=== PATIENT | female | born 2000 | race Two or more races ===

== ENCOUNTER 2022-08-17 14:32 | Emergency (ER) | payer OTHER ==
[2022-08-17 15:27] LABS: Bilirubin Neg (Negative); Blood, Urine Negative (Negative); Clarity Slightly Cloudy (Clear); Glucose, Urine (Dipstick) Normal (Negative); Ketone, Urine 5 mg/dL (Negative); Leukocyte 25 (Negative); Nitrite Positive (Negative); Protein, Urine (Dipstick) 15 mg/dl (Neg-Trace); Specific Gravity, Urine 1.025 (1.005-1.030); Urobilinogen Normal mg/dL (Less than 2)
[2022-08-17 15:50] LABS: #Basophils 0.1 10x3/uL (0.0-0.2); #Eosinphils 0.1 10x3/uL (0.0-0.5); #Monocytes 0.6 10x3/uL (0.0-1.1); #Neutrophils 5.1 10x3/uL (1.5-8.4); %Basophils 0.8 % (0.0-2.0); %Eosinophils 0.6 % (0.0-6.0); %Lymphocytes 33.4 % (18.0-47.0); %Monocytes 6.3 % (0.0-10.0); %Neutrophils 58.7 % (40.0-75.0); Hemoglobin 12.9 g/dL (12.0-15.5); Mean Corpuscular HGB CONC 32.9 g/dL (32.0-36.0); Mean Corpuscular Hemoglobin 29.7 pg (27.0-33.0); Mean Corpuscular Volume 90.1 fl (81.6-98.3); Mean Platelet Volume 9.5 fl (7.4-10.4); Platelet Count 289 10x3/uL (150-450); RBC Distribution Width 12.7 % (11.5-14.5); Red Blood Cell (RBC) Count 4.35 10x6/uL (3.90-5.03); White Blood Cell (WBC) Count 8.7 10x3/uL (3.5-10.5)
[2022-08-17 16:01] LABS: Bacteria/HPF 4+ HPF (None Seen); RBC/HPF 0-3 HPF (0-3); WBC/HPF 21-50 HPF (0-3)
[2022-08-17 16:02] LABS: Mucous/LPF 2+ LPF (<2+); Squamous Epithelial 21-50 HPF (0-3)
== END 2022-08-17 16:52 | disposition home or self-care (01) ==
LOC: CSHERS 14:32
DX: O23.41 Unspecified infection of urinary tract in pregnancy, first trimester (principal); N39.0 Urinary tract infection, site not specified; O21.9 Vomiting of pregnancy, unspecified; Z3A.01 Less than 8 weeks gestation of pregnancy
CPT/HCPCS: 36415; 76856; 81003; 81015; 84702; 85025; 86900; 86901; 87077; 87086; 87186

== ENCOUNTER 2023-03-29 22:36 | Day surgery (SDC) | payer OTHER ==
[2023-03-29 23:28] VITALS: BMI 20.9
[2023-03-30] MEDS ORDERED: hydrALAZINE 20 MG/ML VIAL SLOW IVP PRN (00:30)
== END 2023-03-30 03:50 | disposition home or self-care (01) ==
LOC: CSHLD/OP 22:36
PROVIDERS: ATTEND Family Medicine
DX: O47.03 False labor before 37 completed weeks of gestation, third trimester (principal); Z79.899 Other long term (current) drug therapy; Z91.018 Allergy to other foods; Z3A.36 36 weeks gestation of pregnancy
CPT/HCPCS: 76819; 99282

== ENCOUNTER 2023-04-20 20:57 | Inpatient (IN) | payer OTHER ==
[~2023-04-20 20:57] MED LIST: Bupivacaine 0.25% HCL 30 ML VIAL ONE
[2023-04-20 21:23] VITALS: BMI 21.6
[2023-04-20] MEDS ORDERED: Promethazine HCl 25 MG/ML VIAL IM PRN (22:11)
[2023-04-20] MEDS ORDERED: fentaNYL 50 mcg/mL 1 mL Vial SLOW IVP PRN (22:11)
[2023-04-20] MEDS ORDERED: Diphenoxylate HCl/Atropine Tablet PO PRN (22:11)
[2023-04-20] MEDS ORDERED: Lidocaine 1% (PF) 30 ML VIAL SC PRN (22:11)
[2023-04-20] MEDS ORDERED: Ondansetron PF 4 MG/2 ML Vial IVP PRN (22:11)
[2023-04-20] MEDS ORDERED: hydrALAZINE 20 MG/ML VIAL SLOW IVP PRN (22:11)
[2023-04-20] MEDS ORDERED: HYDROcodone/Acetaminophen 5/325 mg Tablet PO PRN (22:11)
[2023-04-20] MEDS ORDERED: Misoprostol 200 MCG TAB PR PRN (22:11)
[2023-04-20] MEDS ORDERED: Methylergonovine 0.2 MG/ML VIAL IM PRN (22:11)
[2023-04-20] MEDS ORDERED: Tranexamic Acid 1,000 MG/10 ML VIAL IVP PRN (22:11)
[2023-04-20] MEDS ORDERED: Ibuprofen 800 MG TAB PO PRN (22:11)
[2023-04-20] MEDS ORDERED: Acetaminophen 500 MG TAB PO PRN (22:11)
[2023-04-20] MEDS ORDERED: Carboprost 250 MCG/ML AMP IM PRN (22:11)
[2023-04-20] MEDS ORDERED: NS w/ Oxytocin 30 units 500 ML IV SCH ×3 (22:15)
[2023-04-20 22:53] LABS: Hematocrit 37.7 % (34.9-44.5); Hemoglobin 12.5 g/dL (12.0-15.5); Mean Corpuscular HGB CONC 33.2 g/dL (32.0-36.0); Mean Corpuscular Hemoglobin 29.8 pg (27.0-33.0); Mean Corpuscular Volume 89.8 fl (81.6-98.3); Mean Platelet Volume 9.9 fl (7.4-10.4); Platelet Count 292 10x3/uL (150-450); RBC Distribution Width 13.2 % (11.5-14.5); White Blood Cell (WBC) Count 11.6 10x3/uL (3.5-10.5)
[2023-04-20] MEDS ORDERED: fentaNYL/Ropivacaine Epidural 100 ML ONE (22:53)
[2023-04-20] MEDS: Lactated Ringer's 1,000 ML IV SCH (23:09)
[2023-04-20 23:20] LABS: Syphilis Antibody Nonreactive (Nonreactive); Syphilis Antibody Index 0.09 S/CO (<1.00 Non-Reactive)
[2023-04-20 23:26] LABS: HBSAg Index 0.29 S/CO (0-0.99); Hep B Surf Ag - L&D Non-Reactive S/CO (NonReactive)
[2023-04-21] MEDS ORDERED: fentaNYL/Ropivacaine Epidural 100 ML ONE (08:23)
[2023-04-21] MEDS ORDERED: Ondansetron PF 4 MG/2 ML Vial IVP PRN ×2 (09:09→15:35)
[2023-04-21] MEDS ORDERED: diphenhydrAMINE 50 MG/ML VIAL IVP PRN (09:09)
[2023-04-21] MEDS ORDERED: Naloxone HCl 0.4 mg/ml Vial IVP PRN ×2 (09:09)
[2023-04-21] MEDS ORDERED: Lactated Ringer's 500 ML IV PRN (09:09)
[2023-04-21] MEDS ORDERED: ePHEDrine Sulfate 50 MG/10 ML VIAL SLOW IVP PRN (09:09)
[2023-04-21] MEDS ORDERED: Promethazine HCl 25 MG/ML VIAL IM PRN ×2 (09:09→15:35)
[2023-04-21] MEDS ORDERED: Moisturizing Cream (Eucerin) 113 GM JAR TOP PRN (09:09)
[2023-04-21] MEDS ORDERED: Acetaminophen 325 MG TAB PO PRN (09:09)
[2023-04-21] MEDS ORDERED: fentaNYL 2 mcg/Ropivacaine 0.2% Epidural 100 ML CADD EPIDURAL SCH ×2 (09:15)
[2023-04-21] MEDS ORDERED: Communication Order-Pharmacy FS SCH (09:15)
[2023-04-21 13:16] LABS: pH (Cord, venous) 7.248 (7.250-7.350)
[2023-04-21] MEDS ORDERED: diphenhydrAMINE 25 MG CAP PO PRN (15:35)
[2023-04-21] MEDS ORDERED: hydrALAZINE 20 MG/ML VIAL SLOW IVP PRN (15:35)
[2023-04-21] MEDS ORDERED: Bisacodyl 10 MG SUPP PR PRN (15:35)
[2023-04-21] MEDS ORDERED: Boostrix 0.5 ML (Tdap) VIAL (>/=7 yrs of age) IM ONE (15:35)
[2023-04-21] MEDS ORDERED: Milk Of Magnesia 30 ML UDCUP PO PRN (15:35)
[2023-04-21] MEDS ORDERED: Lanolin Ointment 7 GM TUBE TOP PRN (15:35)
[2023-04-21] MEDS: Ferrous Sulfate 325 MG TAB PO SCH (16:04)
[2023-04-21] MEDS: HYDROcodone/Acetaminophen 5/325 mg Tablet PO PRN (17:39)
[2023-04-21] MEDS: Docusate 100 MG CAP PO SCH (22:17)
[2023-04-21] MEDS: Ibuprofen 800 MG TAB PO SCH (22:17)
[2023-04-22] MEDS: Ibuprofen 800 MG TAB PO SCH ×3 (05:34→22:36)
[2023-04-22] MEDS: Lactated Ringer's 1,000 ML IV SCH ×2 (08:16→08:17)
[2023-04-22] MEDS: Ferrous Sulfate 325 MG TAB PO SCH ×2 (08:17→16:14)
[2023-04-22] MEDS: Prenatal Vitamin 1 TAB PO SCH (08:25)
[2023-04-22] MEDS: Docusate 100 MG CAP PO SCH (08:25)
[2023-04-22] MEDS: HYDROcodone/Acetaminophen 5/325 mg Tablet PO PRN (14:27)
[2023-04-22] MEDS ORDERED: Benzocaine-Menthol 82.5 ML CAN TOP PRN (16:38)
[2023-04-22 20:21] VITALS: TEMP 98.1
[2023-04-23] MEDS: Ibuprofen 800 MG TAB PO SCH ×2 (05:29→13:49)
[2023-04-23 07:43] VITALS: BP 120/74
[2023-04-23] MEDS: Prenatal Vitamin 1 TAB PO SCH (07:46)
[2023-04-23] MEDS: Docusate 100 MG CAP PO SCH (07:47)
[2023-04-23] MEDS: Ferrous Sulfate 325 MG TAB PO SCH (12:03)
== END 2023-04-23 15:00 | disposition home or self-care (01) | DRG 807 ==
LOC: CSHLD/OP 20:57 → CSHLD 21:52 → CSHPED 04-21 15:25
PROVIDERS: ADMIT Family Medicine; ATTEND Family Medicine
PROC: 10D07Z6 Extraction of Products of Conception, Vacuum, Via Natural or Artificial Opening (ICD-10-PCS; principal; 2023-04-21)
PROC: 0W8NXZZ Division of Female Perineum, External Approach (ICD-10-PCS; 2023-04-21)
DX: O42.02 Full-term premature rupture of membranes, onset of labor within 24 hours of rupture (principal); Z37.0 Single live birth; Z3A.39 39 weeks gestation of pregnancy; O76 Abnormality in fetal heart rate and rhythm complicating labor and delivery
CPT/HCPCS: 51702; 82805; 85027; 86780; 86850; 86900; 86901; 87340; 99285; J2590; J7120; S0020

== ENCOUNTER 2024-10-12 12:39 | Emergency (ER) | payer OTHER ==
[2024-10-12 13:36] LABS: #Basophils 0.04 10x3/uL (0.0-0.2); #Eosinophils 0.13 10x3/uL (0.0-0.5); #Monocytes 0.36 10x3/uL (0.0-1.1); #Neutrophils 4.73 10x3/uL (1.5-8.4); %Basophils 0.6 % (0.0-2.0); %Eosinophils 1.8 % (0.0-6.0); %Lymphocytes 25.5 % (18.0-47.0); %Monocytes 5.1 % (0.0-10.0); %Neutrophils 66.7 % (40.0-75.0); Hematocrit 42.8 % (34.9-44.5); Hemoglobin 13.5 g/dL (12.0-15.5); Mean Corpuscular HGB CONC 31.5 g/dL (32.0-36.0); Mean Corpuscular Hemoglobin 28.4 pg (27.0-33.0); Mean Corpuscular Volume 90.1 fL (81.6-98.3); Mean Platelet Volume 9.4 fL (7.4-10.4); Platelet Count 288 10x3/uL (150-450); RBC Distribution Width 13.2 % (11.5-14.5); Red Blood Cell (RBC) Count 4.75 10x6/uL (3.90-5.03); White Blood Cell (WBC) Count 7.09 10x3/uL (3.5-10.5)
[2024-10-12 13:58] LABS: BHCG - Serum Negative (NEGATIVE); Pregs Control Background? CLEAR/WHITE (CLR/WHITE); Pregs Control Bar Appear? YES (CONTROL BAR)
[2024-10-12 14:03] LABS: ALT (SGPT) 9 U/L (Less than 34); AST (SGOT) 21 U/L (11-34); Albumin 4.6 g/dL (3.1-4.5); Alkaline Phosphatase 101 U/L (40-110); Anion Gap 12 mmol/L (10-20); BUN (Urea Nitrogen) 10 mg/dL (7.0-18.7); Bilirubin, Total 0.9 mg/dL (0.3-1.2); Calc. Creatinine Clearance 0 mL/min (70-130); Calcium 9.2 mg/dL (7.8-10.44); Carbon Dioxide 24 mmol/L (22-29); Chloride 107 mmol/L (98-107); Estimated GFR 126; Globulin 3.5 g/dL (2.4-3.5); Glucose 95 mg/dL (70-105); Potassium 4.3 mmol/L (3.5-5.1); Protein, Total 8.1 g/dL (6.0-8.3); Sodium 139 mmol/L (136-145)
[2024-10-12] MEDS ORDERED: Ketorolac Tromethamine 30 MG (1 mL) VIAL ONE (14:23)
[2024-10-12 14:25] LABS: Bilirubin Neg (Negative); Blood, Urine 250 (Negative); Glucose, Urine (Dipstick) Normal (Negative); Ketone, Urine Negative (Negative); Leukocyte 25 (Negative); Nitrite Negative (Negative); Protein, Urine (Dipstick) 100 mg/dl (Neg-Trace); Urobilinogen Normal mg/dL (Less than 2)
[2024-10-12 14:37] LABS: Clarity Cloudy (Clear)
[2024-10-12 14:42] LABS: RBC/HPF Greater than 50 HPF (0-3)
[2024-10-12 14:43] LABS: Bacteria/HPF Rare-Few HPF (None Seen); CAUTI Indications for Culture Dysuria,urgency,freq; Squamous Epithelial 0-3 HPF (0-3)
[2024-10-12 14:44] LABS: Urine Culture Reflex No No; WBC/HPF 0-3 HPF (0-3)
== END 2024-10-12 15:37 | disposition home or self-care (01) ==
LOC: CSHERS 12:39
DX: N93.8 Other specified abnormal uterine and vaginal bleeding (principal)
CPT/HCPCS: 36415; 76856; 80053; 81001; 84703; 85025; 96372; J1885